=== PATIENT | female | born 1950 | race Caucasian/White ===

== ENCOUNTER 2021-12-31 09:45 | Outpatient (CLI) | payer MEDICARE | END 2021-12-31 09:46 | disposition home or self-care (01) | LOC: LABBT 09:45 | PROVIDERS: ATTEND Orthopaedic Surgery | DX: Z01.818 Encounter for other preprocedural examination (principal); M17.12 Unilateral primary osteoarthritis, left knee | CPT/HCPCS: 71046; 80048; 81003; 85025; 85610; 86850; 86900; 86901; 87081; 93005; 93010 ==

== ENCOUNTER 2022-01-05 06:44 | Observation (INO) | payer MEDICARE ==
[2021-12-31 11:36] LABS: Bilirubin Neg (Negative); Blood, Urine Negative (Negative); Clarity Clear (Clear); Glucose, Urine (Dipstick) Normal (Negative); Ketone, Urine Negative (Negative); Leukocyte Negative (Negative); Nitrite Negative (Negative); Protein, Urine (Dipstick) Negative (Neg-Trace); Urobilinogen Normal mg/dL (Less than 2)
[2021-12-31 11:41] LABS: #Basophils 0.1 10x3/uL (0.0-0.2); #Eosinphils 0.1 10x3/uL (0.0-0.5); #Monocytes 0.5 10x3/uL (0.0-1.1); #Neutrophils 4.8 10x3/uL (1.5-8.4); %Basophils 0.9 % (0.0-2.0); %Eosinophils 1.1 % (0.0-6.0); %Lymphocytes 31.1 % (18.0-47.0); %Monocytes 6.5 % (0.0-10.0); %Neutrophils 59.9 % (40.0-75.0); Hemoglobin 14.5 g/dL (12.0-15.5); Mean Corpuscular HGB CONC 34.9 g/dL (32.0-36.0); Mean Corpuscular Hemoglobin 33.7 pg (27.0-33.0); Mean Corpuscular Volume 96.7 fl (81.6-98.3); Platelet Count 280 10x3/uL (150-450); RBC Distribution Width 14.1 % (11.5-14.5)
[2021-12-31 11:53] LABS: INR-International Normal Ratio 0.9; Prothrombin Time 10.2 sec (9.5-12.1)
[2021-12-31 11:55] LABS: Anion Gap 13 mmol/L (10-20); BUN (Urea Nitrogen) 13 mg/dL (9.8-20.1); Calc. Creatinine Clearance 0 mL/min (70-130); Calcium 9.3 mg/dL (7.8-10.44); Carbon Dioxide 25 mmol/L (23-31); Chloride 106 mmol/L (98-107); Estimated GFR 91; Glucose 96 mg/dL (83-110); Potassium 4.1 mmol/L (3.5-5.1); Sodium 140 mmol/L (136-145)
[2022-01-01 15:46] VITALS: BMI 28.7
[2022-01-05] MEDS ORDERED: Vancomycin 1 GM/200 ML BAG ONE (07:19)
[2022-01-05] MEDS ORDERED: Sodium Chloride 0.9% 100 ML ONE ×2 (07:19→09:26)
[2022-01-05] MEDS ORDERED: Tranexamic Acid 1,000 MG/10 ML VIAL ONE (07:19)
[2022-01-05] MEDS ORDERED: Midazolam HCl 2 mg/2 ml Vial ONE (07:36)
[2022-01-05] MEDS ORDERED: Ropivacaine 0.5% HCl/PF (150 MG/30 ML VIAL) ONE (07:36)
[2022-01-05] MEDS ORDERED: FENTANYL 50 MCG/ML 1 ML VIAL ONE ×3 (07:36→12:03)
[2022-01-05 08:03] LABS: SARS-CoV-2 NAA Rapid Test Not Detected (NotDetected)
[2022-01-05] MEDS ORDERED: Lidocaine 1% MPF 2 ML VIAL ONE (08:06)
[2022-01-05] MEDS ORDERED: Fentanyl 100 MCG/2 ML VIAL IV PRN (09:14)
[2022-01-05] MEDS ORDERED: Promethazine HCl 25 MG/ML VIAL IM PRN ×3 (09:15→11:18)
[2022-01-05] MEDS ORDERED: Ondansetron PF 4 MG/2 ML Vial IVP PRN ×2 (09:15→11:11)
[2022-01-05] MEDS ORDERED: Ropivacaine 0.2% 550 ML 550 ML NERVE BLCK SCH (09:15)
[2022-01-05] MEDS ORDERED: traMADol HCl 50 MG TAB PO PRN ×2 (09:15)
[2022-01-05] MEDS ORDERED: Bupivacaine PF 0.5% 30 ML VIAL ONE (09:15)
[2022-01-05] MEDS ORDERED: HYDROcodone/Acetaminophen 10/325 mg Tablet PO PRN (09:15)
[2022-01-05] MEDS ORDERED: Zolpidem Tartrate 5 MG TAB PO PRN ×2 (09:15→11:11)
[2022-01-05] MEDS ORDERED: CEFAZOLIN 2 GM VIAL ONE (09:26)
[2022-01-05] MEDS ORDERED: Ondansetron PF 4 MG/2 ML Vial ONE (09:38)
[2022-01-05] MEDS ORDERED: PROPOFOL 200 MG/20 ML VIAL ONE (09:38)
[2022-01-05] MEDS ORDERED: PHENYLEPHRINE-NS 100 MCG/ML 10 ML SYRINGE ONE (09:38)
[2022-01-05] MEDS ORDERED: Dexamethasone 20 MG/5 ML VIAL ONE (09:38)
[2022-01-05] MEDS ORDERED: fentaNYL PF 100 MCG/2 ML SYRINGE ONE (10:02)
[2022-01-05] MEDS ORDERED: diphenhydrAMINE 25 MG CAP PO PRN (11:11)
[2022-01-05] MEDS ORDERED: Acetaminophen 325 MG TAB PO PRN (11:11)
[2022-01-05] MEDS ORDERED: Promethazine HCl 25 MG/ML VIAL IVPB PRN (11:18)
[2022-01-05] MEDS ORDERED: Ondansetron HCl/PF 4 MG/2 ML Vial IVP PRN (11:18)
[2022-01-05] MEDS ORDERED: Tranexamic Acid 1,000 MG in Sodium Chloride 0.9% 100 ML IVPB SCH (11:30)
[2022-01-05] MEDS: Ketorolac Tromethamine 30 MG/ML VIAL IVP SCH ×3 (13:55→23:52)
[2022-01-05] MEDS: HYDROcodone/Acetaminophen 10/325 mg Tablet PO PRN (13:56)
[2022-01-05] MEDS: Sodium Chloride 0.9% 1,000 ML IV SCH ×2 (13:56→23:00)
[2022-01-05] MEDS ORDERED: Nicotine 21 MG PATCH TOP SCH (16:30)
[2022-01-05] MEDS: CEFAZOLIN 2 GM in Sodium Chloride 0.9% 100 ML IVPB SCH ×2 (17:39→23:55)
[2022-01-05] MEDS ORDERED: Vancomycin 1 GM in Premix Bag 1 BAG IVPB SCH (20:00)
[2022-01-05] MEDS: Senokot S 8.6-50 MG TAB PO SCH (20:46)
[2022-01-05] MEDS: Ferrous Gluconate 324 MG TAB PO SCH (20:46)
[2022-01-05] MEDS: Aspirin 81 mg Enteric Coated Tablet PO SCH (20:46)
[2022-01-06] MEDS: Ketorolac Tromethamine 30 MG/ML VIAL IVP SCH ×2 (06:16→11:06)
[2022-01-06] MEDS: Sodium Chloride 0.9% 1,000 ML IV SCH (07:19)
[2022-01-06] MEDS: Ferrous Gluconate 324 MG TAB PO SCH (08:02)
[2022-01-06] MEDS: Senokot S 8.6-50 MG TAB PO SCH (08:02)
[2022-01-06] MEDS: Aspirin 81 mg Enteric Coated Tablet PO SCH (08:02)
[2022-01-06] MEDS: HYDROcodone/Acetaminophen 10/325 mg Tablet PO PRN ×2 (08:03→12:38)
[2022-01-06 08:10] LABS: Hemoglobin 11.8 g/dL (12.0-16.0); Mean Corpuscular HGB CONC 33.2 g/dL (32.0-36.0); Mean Corpuscular Hemoglobin 33.8 pg (27.0-31.0); Mean Platelet Volume 8.2 fL (7.4-10.4); Platelet Count 197 thou/uL (130-400); Red Blood Cell (RBC) Count 3.48 mill/uL (4.20-5.40); White Blood Cell (WBC) Count 12.3 thou/uL (4.8-10.8)
[2022-01-06] MEDS ORDERED: Multivitamin W/ Minerals 1 TAB PO SCH (09:00)
[2022-01-07 02:34] VITALS: BP 106/66; TEMP 98.3
== END 2022-01-06 14:32 | disposition home or self-care (01) ==
LOC: SDC 06:44 → EDSTATUS 10:00 → SJJU 12:32
PROVIDERS: ADMIT Orthopaedic Surgery; ATTEND Orthopaedic Surgery
PROC: 0SRD0J9 Replacement of Left Knee Joint with Synthetic Substitute, Cemented, Open Approach (ICD-10-PCS; principal; 2022-01-05)
DX: M17.12 Unilateral primary osteoarthritis, left knee (principal); E78.5 Hyperlipidemia, unspecified; M81.0 Age-related osteoporosis without current pathological fracture; F17.210 Nicotine dependence, cigarettes, uncomplicated; Z20.822 Contact with and (suspected) exposure to COVID-19
CPT/HCPCS: 20985; 27447; 80048; 81003; 85025; 85027; 85610; 86850; 86900; 86901; 97110 ×2; 97116 ×2; 97530 ×2; A4306; C1713; C1776; J3010; U0002; 36415; J1100; J1885; J2250; J2405; J2704; J2795; J3370; J3490; J7050; J7620; S0020